=== PATIENT | male | born 1945 | race Caucasian/White ===

== ENCOUNTER 2018-06-19 07:26 | Day surgery (SDC) | payer MEDICARE ==
[~2018-06-19 07:26] MED LIST: Propofol 200 MG/20 ML SDV ONE; fentaNYL 100 MCG/2 ML SDV ONE
[2018-06-19] MEDS ORDERED: Dextrose 5%-Lactated Ringers 1,000 ML IV SCH (08:30)
--- NOTE | 2018-06-22 21:20 | OR ---
DATE OF PROCEDURE: 06/19/2018 PREOPERATIVE DIAGNOSIS: Frequent loose bowel movements with history of ischemic colitis. POSTOPERATIVE DIAGNOSES: 1. History of frequent loose bowel movements associated with possible right-sided colitis and/or bile irritation. 2. Healed area of ischemic colitis. OPERATIVE PROCEDURES: Flexible colonoscopy with; 1. Biopsies of cecum and ascending colon. 2. Collection of stool for culture and sensitivity. ANESTHESIA: IV sedation. INDICATION FOR PROCEDURE: This 72-year-old is presenting with frequent loose bowel movements. He did have a history of ischemic colitis, treated conservatively in 2009. He states that he thinks that he is having the frequent loose bowel movements since having a cholecystectomy, which is a possibility due to somewhat more persistent flow of bile into the small bowel and right colon following the cholecystectomy. DETAILS OF PROCEDURE: The patient was taken to the operating room and placed in a left lateral decubitus position. IV sedation was administered, after which the initial digital rectal exam was performed and was unremarkable. Colonoscope was then passed into the rectum with retroflexion revealing uncomplicated hemorrhoidal columns. The scope was then eventually passed to the level of the cecum. The prep was fairly good. There were no significant abnormalities in the rectum, sigmoid, or descending colon, and the area of splenic flexure where the patient had previous ischemic colitis was now entirely well healed with no stricturing or mucosal abnormalities. As one passed through the transverse colon and into the ascending colon, it became evident that there was quite a bit of bile present. This was associated with some mild redness of the cecum and ascending colon consistent with possible colitis. This may be simply related to irritation by the amount of bile present as well. Biopsies were obtained from the cecum and ascending colon and sent for histologic evaluation. Stool was also sent in this case for stool cultures to make sure we are not dealing with some occult Clostridium difficile or other infectious issue. Minimal bleeding from the biopsy sites was seen, the procedure then concluded, and the above findings reconfirmed. The plan will be to have the patient follow up with Dr. Jacob or the Internal Medicine staff in [facility] in about 2 weeks. If no specific diagnosis, such as microscopic colitis, is present, one might consider something to slow down the bowels. Bowel-binding agent, such as Questran would be useful, but poor compliance is usually associated with that medication, and he might be able to use something like Imodium intermittently to control the bowel movements. At any rate, he will be following with Internal Medicine in about 2 weeks. Devyn Lind MD /[id number]
== END 2018-06-19 11:20 | disposition home or self-care (01) ==
LOC: JP.SDS 07:26
PROVIDERS: ATTEND Surgery
DX: K52.9 Noninfective gastroenteritis and colitis, unspecified (principal); K64.9 Unspecified hemorrhoids; Z87.19 Personal history of other diseases of the digestive system; F17.200 Nicotine dependence, unspecified, uncomplicated; Z88.5 Allergy status to narcotic agent; Z88.6 Allergy status to analgesic agent; Z88.8 Allergy status to other drugs, medicaments and biological substances
CPT/HCPCS: 45378; 87046; 87177; 87209; 87493; 87899; 89055; J2704; J3010; J7042

== ENCOUNTER 2019-08-22 18:11 | Emergency (ER) | payer MEDICARE ==
--- NOTE | 2019-08-22 18:54 | EDM.PDOC ---
ED HPI GENERAL MEDICAL PROBLEM - General Chief Complaint: General Stated Complaint: FELL MEDICAL VIA [facility] Time Seen by Provider: 08/22/19 18:24 Source of Information: Reports: Patient, EMS, Family History Limitations: Reports: No Limitations - History of Present Illness INITIAL COMMENTS - FREE TEXT/NARRATIVE: 74-year-old male brought in by ambulance with right posterior chest discomfort after falling at home. He has peripheral neuropathy and stumbled falling back hitting his right flank area on a vanity. He is concerned he may have fractured a rib. He also has had previous back surgeries and is concerned about the metal in his back. He has a very small abrasion over the right flank, but no large area of erythema, ecchymosis or bruising. No asymmetry. He has minimal discomfort with breathing. He actually feels fairly comfortable when lying still. No other injury. Onset: Sudden Duration: Hour(s): (Fell 1 hour ago) Location: Reports: Chest (Right flank area), Back Improves with: Reports: Other (Lying still) Worsens with: Reports: Movement Associated Symptoms: Reports: No Other Symptoms Middle Back Pain Score (Numeric/FACES): 2 - Related Data Allergies Allergy/AdvReac Type Severity Reaction Status Date / Time hydromorphone [From Dilaudid] Allergy Anaphylactic Verified 06/19/18 07:43 Shock ibuprofen Allergy Abdominal Verified 06/19/18 07:43 Pain vancomycin Allergy Rash Verified 06/19/18 07:43 Home Meds: Home Meds Aspirin [Halfprin] 81 mg PO DAILY 06/15/18 [History] Chlorthalidone 25 mg PO DAILY 06/15/18 [History] Cholecalciferol (Vitamin D3) [Vitamin D3] 1,000 unit PO DAILY 06/15/18 [History] Cyanocobalamin (Vitamin B-12) [Vitamin B-12] 1,000 mcg SL DAILY 06/15/18 [ History] Gabapentin [Neurontin] 300 mg PO DAILY 06/15/18 [History] traMADol HCl [Ultram] 50 mg PO QID 06/15/18 [History] Past Medical History HEENT History: Reports: Impaired Vision Other HEENT History: reading glasses Cardiovascular History: Reports: Hypertension Gastrointestinal History: Reports: Chronic Constipation, Chronic Diarrhea Genitourinary History: Reports: Prostate Disorder, Other (See Below) Other Genitourinary History: "PSA going up" - Infectious Disease History Infectious Disease History: Reports: Chicken Pox, Measles, Mumps - Past Surgical History GI Surgical History: Reports: Cholecystectomy, Colonoscopy, Hernia, Inguinal Neurological Surgical History: Reports: C-Spine, Lumbar Spine Musculoskeletal Surgical History: Reports: Other (See Below) Other Musculoskeletal Surgeries/Procedures:: back surgery and neck surgery Social & Family History - Family History Family Medical History: Noncontributory - Tobacco Use Smoking Status *Q: Current Every Day Smoker Years of Tobacco use: 60 Packs/Tins Daily: 1 - Caffeine Use Caffeine Use: Reports: Coffee - Recreational Drug Use Recreational Drug Use: No ED ROS GENERAL - Review of Systems Review Of Systems: See Below Constitutional: Denies: Fever, Chills Respiratory: Denies: Shortness of Breath, Pleuritic Chest Pain Cardiovascular: Reports: Chest Pain (Right posterior chest and flank) GI/Abdominal: Denies: Abdominal Pain, Nausea, Vomiting : Reports: No Symptoms Skin: Reports: Bruising (Small abrasion at the point of impact on the right flank) Neurological: Reports: Other (Significant chronic peripheral neuropathy) Psychiatric: Reports: No Symptoms ED EXAM, GENERAL - Physical Exam Exam: See Below Exam Limited By: No Limitations General Appearance: Alert, No Apparent Distress Eye Exam: Bilateral Eye: EOMI Head: Atraumatic Neck: Non-Tender Respiratory/Chest: No Respiratory Distress, Lungs Clear GI/Abdominal: Soft, Non-Tender Back Exam: Other (Patient has a small abrasion in the right mid back with tenderness to palpation of the ribs on the right side under the scapula. No crepitus.) Course - Vital Signs Last Recorded V/S: Last Vital Signs Temp 97.9 F 08/22/19 18:34 Pulse 72 08/22/19 18:34 Resp 18 08/22/19 18:34 BP 131/71 08/22/19 18:34 Pulse Ox 92 L 08/22/19 18:34 - Orders/Labs/Meds Meds: Medications Discontinued Medications Generic Name Dose Route Start Last Admin Trade Name Freq PRN Reason Stop Dose Admin Ketorolac Tromethamine 60 mg 08/22/19 19:46 08/22/19 19:51 Toradol IM 08/22/19 19:47 60 mg ONETIME ONE Administration Tramadol HCl 100 mg 08/22/19 19:46 08/22/19 19:52 Ultram PO 08/22/19 19:47 100 mg ONETIME ONE Administration - Re-Assessments/Exams Free Text/Narrative Re-Assessment/Exam: 08/22/19 18:[address] of the chest without contrast was obtained. 08/22/19 19:47 While waiting for the report from CT of the chest, the patient became fairly uncomfortable and was given 60 mg of IM Toradol and 100 mg of by mouth tramadol. The CT scan shows obvious rib fractures on the right side, at least 3 but no significant pulmonary contusion. We are still waiting for formal report. 08/22/19 20:04 CT report confirmed 5 rib fractures, the ninth being slightly displaced and also 1 nondisplaced transverse process fracture. Patient is fairly uncomfortable and I offered hospitalization but he wants to try to go home. He is stable, O2 saturations are normal and I have no reason to insist to be hospitalized. He will return if unable to get by at home over the next 1-2 days. A recheck early next week with his primary provider will also be recommended. Departure - Departure Time of Disposition: 20:58 Disposition: Home, Self-Care 01 Clinical Impression: Multiple rib fractures Qualifiers: Encounter type: initial encounter Fracture type: closed Laterality: right Qualified Code(s): S22.41XA - Multiple fractures of ribs, right side, initial encounter for closed fracture Fracture of transverse process of thoracic vertebra Qualifiers: Encounter type: initial encounter Fracture type: closed Qualified Code(s): S22.009A - Unspecified fracture of unspecified thoracic vertebra, initial encounter for closed fracture - Discharge Information Instructions: Rib Fracture, [id number] Referrals: Preston Jacob MD [Primary Care Provider] - Forms: ED Department Discharge Care Plan Goals: Use pain medication on a continuous basis, increase activity as tolerated and return anytime if you become short of breath or pain is uncontrolled. Consider rechecking with Dr. Jacob or at the walk-in clinic next week to monitor your progress. Return sooner if worsening or concerns. Wrapping the chest with keren wraps intermittently while awake may be beneficial.
[2019-08-22] MEDS: Ketorolac 60 MG/2 ML SDV IM ONE (19:51)
[2019-08-22] MEDS: traMADol 50 MG Tab PO ONE (19:52)
--- NOTE | 2019-08-22 19:54 | CRLCT ---
INDICATION: Fall, trauma. TECHNIQUE: Nonenhanced CT scan of the chest with multiplanar reconstructions. FINDINGS: There are multiple posterior right rib fractures, without evidence of pneumothorax. Fractures involve posterior right rib #11, lateral right rib ribs 7, 8, 9, and 10, with a fracture at rib 9 being mildly displaced. A small amount of pleural thickening and/or fluid. Minor atelectasis at the posterior right lower lobe. Minimal pulmonary contusion is a possibility. Mild pulmonary emphysematous change.56 Nondisplaced fracture of the right transverse process of T10. No other acute thoracic spine injury. The heart and mediastinum are within normal limits. Homogeneous thyroid. Aortic stent graft, incompletely visualized. Probable left renal cyst posteriorly, also incompletely seen. Cholecystectomy clips. Otherwise, visualized portions of solid abdominal organs appear within normal limits. Anterior metallic fusion plate at the lower cervical spine. IMPRESSION: 1. Multiple right rib fractures, fracture at the lateral aspect of right rib 9 is mildly displaced. No evidence of pneumothorax. Minimal right posterior pulmonary contusion is suggested. Mild pleural thickening. 2. Nondisplaced fracture of right transverse process of T10 with no other acute thoracic injury. 3. Mild pulmonary emphysematous change. Please note that all CT scans at this facility use dose modulation, iterative reconstruction, and/or weight-based dosing when appropriate to reduce radiation dose to as low as reasonably achievable. Dictated by Ming Duran MD @ Aug 22 2019 7:40PM Signed by Dr. Ming Duran @ Aug 22 2019 7:53PM
== END 2019-08-22 20:57 | disposition home or self-care (01) ==
LOC: JP.ED 18:11
DX: S22.41XA Multiple fractures of ribs, right side, initial encounter for closed fracture (principal); S22.071A Stable burst fracture of T9-T10 vertebra, initial encounter for closed fracture; I10 Essential (primary) hypertension; F17.210 Nicotine dependence, cigarettes, uncomplicated; Z88.6 Allergy status to analgesic agent; Z88.1 Allergy status to other antibiotic agents; Z79.82 Long term (current) use of aspirin; Z79.899 Other long term (current) drug therapy; W18.30XA Fall on same level, unspecified, initial encounter; W22.8XXA Striking against or struck by other objects, initial encounter; Y92.002 Bathroom of unspecified non-institutional (private) residence as the place of occurrence of the external cause
CPT/HCPCS: 71250; 96372; 99284; 99285; A9270; J1885

== ENCOUNTER 2021-07-31 11:41 | Observation (INO) | payer MEDICARE ==
--- NOTE | 2021-07-31 12:14 | EDM.PDOC ---
ED HPI GENERAL MEDICAL PROBLEM - General Chief Complaint: General Stated Complaint: MEDICAL VIA AMBULANCE Time Seen by Provider: 07/31/21 11:55 Source of Information: Reports: Patient, EMS, Old Records History Limitations: Reports: No Limitations - History of Present Illness INITIAL COMMENTS - FREE TEXT/NARRATIVE: 75 yo male got blurred vision and bilateral shoulder pain today whenever he would try to stand up. Lying improved his sx's. At one point he got pale and diaphoretic so EMS was called and transported. He is not aware of any recent illnesses or vomiting/diarrhea. No fever. No chest pain. He did take this morning's meds. EMS noted orthostatic vital signs. 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 He is a cigarette smoker. Was prescribed on hospital discharge oxygen to use around the clock, but he only uses it at night and at 3 liters/min/NC. Onset: Today, Sudden Onset Date: 07/31/21 Duration: Hour(s):, Waxing/Waning Location: Reports: Generalized Quality: Reports: Ache (both shoulders now gone) Severity: Moderate Improves with: Reports: Other (lying down) Worsens with: Reports: Other (standing) Context: Reports: Other (see HPI) Associated Symptoms: Reports: Diaphoresis, Syncope (near syncope). Denies: Chest Pain, Fever/Chills Treatments [employer] RESURFACER: Reports: Other (see below) (IV access only per EMS) - Related Data Allergies Allergy/AdvReac Type Severity Reaction Status Date / Time hydromorphone [From Dilaudid] Allergy Severe Anaphylactic Verified 03/27/20 07:41 Shock vancomycin Allergy Rash Verified 06/19/18 07:43 ibuprofen AdvReac Abdominal Verified 03/27/20 07:41 Pain Home Meds: Home Meds Aspirin [Halfprin] 81 mg PO DAILY 06/15/18 [History] Chlorthalidone 25 mg PO DAILY 06/15/18 [History] Cholecalciferol (Vitamin D3) [Vitamin D3] 1,000 unit PO DAILY 06/15/18 [History] Cyanocobalamin (Vitamin B-12) [Vitamin B-12] 1,000 mcg SL DAILY 06/15/18 [History] Gabapentin [Neurontin] 300 mg PO DAILY 06/15/18 [History] traMADol HCl [Ultram] 50 mg PO QID 06/15/18 [History] Rivaroxaban [Xarelto] 20 mg PO DAILY 07/31/21 [History] Past Medical History HEENT History: Reports: Impaired Vision Other HEENT History: reading glasses Cardiovascular History: Reports: Hypertension Gastrointestinal History: Reports: Chronic Constipation, Chronic Diarrhea Genitourinary History: Reports: Prostate Disorder, Other (See Below) Other Genitourinary History: "PSA going up" - Infectious Disease History Infectious Disease History: Reports: Chicken Pox, Measles, Mumps - Past Surgical History GI Surgical History: Reports: Cholecystectomy, Colonoscopy, Hernia, Inguinal Neurological Surgical History: Reports: C-Spine, Lumbar Spine Musculoskeletal Surgical History: Reports: Other (See Below) Other Musculoskeletal Surgeries/Procedures:: back surgery and neck surgery Social & Family History - Family History Family Medical History: No Pertinent Family History - Caffeine Use Caffeine Use: Reports: Coffee ED ROS GENERAL - Review of Systems Review Of Systems: See Below Constitutional: Reports: Malaise, Decreased Appetite HEENT: Reports: Vision Change (when standing), Other (dry mouth) Respiratory: Reports: No Symptoms Cardiovascular: Reports: Lightheadedness GI/Abdominal: Reports: No Symptoms : Reports: No Symptoms Musculoskeletal: Reports: No Symptoms Skin: Reports: No Symptoms Neurological: Reports: No Symptoms Psychiatric: Reports: No Symptoms ED EXAM, GENERAL - Physical Exam Exam: See Below Exam Limited By: No Limitations General Appearance: Alert, WD/WN, No Apparent Distress Eye Exam: Right Eye: Proptosis, Bilateral Eye: Normal Inspection Ears: Normal External Exam, Normal Canal, Hearing Grossly Normal Ear Exam: Bilateral Ear: Auricle Normal, Canal Normal Nose: Normal Inspection, No Blood Throat/Mouth: Normal Inspection, Normal Lips, Normal Oropharynx, Normal Voice, No Airway Compromise Head: Atraumatic, Normocephalic Neck: Normal Inspection Respiratory/Chest: No Respiratory Distress, Lungs Clear, Normal Breath Sounds, No Accessory Muscle Use Cardiovascular: Regular Rate, Rhythm, No Edema GI/Abdominal: Normal Bowel Sounds, Soft, Non-Tender, No Distention. No: Distended Extremities: Normal Inspection, Normal Range of Motion, Non-Tender, No Pedal Edema Neurological: Alert, Oriented, CN II-XII Intact, Normal Cognition, No Motor/Sensory Deficits Psychiatric: Normal Affect, Normal Mood Skin Exam: Warm, Dry, Intact, Normal Color, No Rash Course - Vital Signs Text/Narrative:: Dr. Mitchell called @ 1725h Last Recorded V/S: Last Vital Signs Temp 36.4 C 07/31/21 12:10 Pulse 80 07/31/21 17:07 Resp 25 H 07/31/21 17:07 BP 91/53 L 07/31/21 17:07 Pulse Ox 94 L 07/31/21 17:07 Orthostatic Blood Pressure [ 80/46 Standing] Orthostatic Blood Pressure [ 104/59 Sitting] Orthostatic Blood Pressure [ 115/66 Supine] - Orders/Labs/Meds Orders: Active Orders 24 hr Category Date Time Status Orthostatic Vital Signs [RC] ASDIRECTED Care 07/31/21 13:42 Active Lactated Ringers [Ringers, Lactated] 1,000 ml Med 07/31/21 12:15 Active IV BOLUS NS + KCl 20mEq/L [Normal Saline with 20 mEq KCl] 1,000 Med 07/31/21 14:15 Active ml IV ASDIRECTED Nicotine [Habitrol] Med 07/31/21 17:24 Once 21 mg TRDERM ONETIME ONE Medication Orders Lactated Ringer's (Ringers, Lactated) 1,000 mls @ 1,000 mls/hr IV BOLUS FAUSTINA Last Admin: 07/31/21 12:39 Dose: 1,000 mls/hr Documented by: CECILY Potassium Chloride/Sodium Chloride (Normal Saline With 20 Meq Kcl) 1,000 mls @ 1,000 mls/hr IV ASDIRECTED FAUSTINA Last Admin: 07/31/21 14:09 Dose: 1,000 mls/hr Documented by: CECILY Labs: Laboratory Tests 07/31/21 07/31/21 07/31/21 Range/Units 12:19 12:19 12:19 WBC 11.6 H (4.5-11.0) K/uL RBC 4.75 (4.30-5.90) M/uL Hgb 13.9 (12.0-15.0) g/dL Hct 41.7 (40.0-54.0) % MCV 88 (80-98) fL MCH 29 (27-31) pg MCHC 33 (32-36) % Plt Count 205 (150-400) K/uL Sodium 137 L (140-148) mmol/L Potassium 3.2 L (3.6-5.2) mmol/L Chloride 100 (100-108) mmol/L Carbon Dioxide 30 (21-32) mmol/L Anion Gap 10.2 (5.0-14.0) mmol/L BUN 24 H (7-18) mg/dL Creatinine 1.0 (0.8-1.3) mg/dL Est Cr Clr Drug Dosing 65.89 mL/min Estimated GFR (MDRD) > 60 (>60) Glucose 96 (74-106) mg/dL Calcium 8.6 (8.5-10.1) mg/dL Magnesium 2.1 (1.8-2.4) mg/dL Troponin I < 0.017 (0.000-0.056) ng/mL Urine Color (YELLOW) Urine Appearance (CLEAR) Urine pH (5.0-8.0) Ur Specific [place] (1.008-1.030) Urine Protein (NEGATIVE) mg/dL Urine Glucose (UA) (NEGATIVE) mg/dL Urine Ketones (NEGATIVE) mg/dL Urine Occult Blood (NEGATIVE) Urine Nitrite (NEGATIVE) Urine Bilirubin (NEGATIVE) Urine Urobilinogen (0.2-1.0) EU/dL Ur Leukocyte Esterase (NEGATIVE) Urine RBC (0-5) Urine WBC (0-5) Ur Epithelial Cells Amorphous Sediment Urine Bacteria Urine Mucus 07/31/21 07/31/21 Range/Units 14:24 14:44 WBC (4.5-11.0) K/uL RBC (4.30-5.90) M/uL Hgb (12.0-15.0) g/dL Hct (40.0-54.0) % MCV (80-98) fL MCH (27-31) pg MCHC (32-36) % Plt Count (150-400) K/uL Sodium (140-148) mmol/L Potassium (3.6-5.2) mmol/L Chloride (100-108) mmol/L Carbon Dioxide (21-32) mmol/L Anion Gap (5.0-14.0) mmol/L BUN (7-18) mg/dL Creatinine (0.8-1.3) mg/dL Est Cr Clr Drug Dosing mL/min Estimated GFR (MDRD) (>60) Glucose (74-106) mg/dL Calcium (8.5-10.1) mg/dL Magnesium (1.8-2.4) mg/dL Troponin I < 0.017 (0.000-0.056) ng/mL Urine Color Yellow (YELLOW) Urine Appearance Clear (CLEAR) Urine pH 7.0 (5.0-8.0) Ur Specific [place] 1.015 (1.008-1.030) Urine Protein Negative (NEGATIVE) mg/dL Urine Glucose (UA) Negative (NEGATIVE) mg/dL Urine Ketones Negative (NEGATIVE) mg/dL Urine Occult Blood Trace-intact H (NEGATIVE) Urine Nitrite Negative (NEGATIVE) Urine Bilirubin Negative (NEGATIVE) Urine Urobilinogen 0.2 (0.2-1.0) EU/dL Ur Leukocyte Esterase Negative (NEGATIVE) Urine RBC 0-5 (0-5) Urine WBC 0-5 (0-5) Ur Epithelial Cells Not seen Amorphous Sediment Rare Urine Bacteria Rare Urine Mucus Rare Meds: Medications Generic Name Dose Route Start Last Admin Trade Name Freq PRN Reason Stop Dose Admin Lactated Ringer's 1,000 mls @ 1,000 mls/hr 07/31/21 12:15 07/31/21 12:39 Ringers, Lactated IV 1,000 mls/hr BOLUS FAUSTINA Administration Potassium Chloride/Sodium Chloride 1,000 mls @ 1,000 mls/hr 07/31/21 14:15 07/31/21 14:09 Normal Saline With 20 Meq Kcl IV 1,000 mls/hr ASDIRECTED FAUSTINA Administration Discontinued Medications Generic Name Dose Route Start Last Admin Trade Name Freq PRN Reason Stop Dose Admin Lactated Ringer's 1,000 mls @ 1,000 mls/hr 07/31/21 15:33 07/31/21 16:36 Ringers, Lactated IV 07/31/21 16:32 1,000 mls/hr BOLUS ONE Administration Potassium Chloride 40 meq 07/31/21 13:01 07/31/21 13:12 Potassium Chloride 20 Meq Tab.Er PO 07/31/21 13:02 40 meq ONETIME ONE Administration - Radiology Interpretation Free Text/Narrative:: CXR- - Re-Assessments/Exams Free Text/Narrative Re-Assessment/Exam: 07/31/21 14:55 Urine specimen obtained after a liter of IV fluids. Remains orthostatic after 1.5 liters of IV fluids. Departure - Departure Time of Disposition: 17:40 Disposition: Admitted As Inpatient 64 Condition: Fair Clinical Impression: Orthostasis, Hypokalemia - Discharge Information *PRESCRIPTION DRUG MONITORING PROGRAM REVIEWED*: Not Applicable *COPY OF PRESCRIPTION DRUG MONITORING REPORT IN PATIENT RAYMUNDO: Not Applicable Referrals: Preston Jacob MD [Primary Care Provider] - Forms: ED Department Discharge Sepsis Event Note (ED) - Focused Exam Vital Signs: Vital Signs Temp Pulse Resp BP Pulse Ox 07/31/21 17:07 80 25 H 91/53 L 94 L 07/31/21 16:32 74 16 95/56 L 94 L 07/31/21 15:29 65 12 127/65 94 L 07/31/21 14:58 61 123/68 07/31/21 14:41 62 21 H 119/68 07/31/21 12:46 61 13 120/63 91 L 07/31/21 12:10 36.4 C 63 21 H 103/57 L 92 L 07/31/21 11:48 36.1 C 64 13 103/57 L 91 L - My Orders Last 24 Hours: My Active Orders 07/31/21 12:15 Lactated Ringers [Ringers, Lactated] 1,000 ml IV BOLUS 07/31/21 13:42 Orthostatic Vital Signs [RC] ASDIRECTED 07/31/21 14:15 NS + KCl 20mEq/L [Normal Saline with 20 mEq KCl] 1,000 ml IV ASDIRECTED 07/31/21 17:24 Nicotine [Habitrol] 21 mg TRDERM ONETIME ONE - Assessment/Plan Last 24 Hours: My Active Orders 07/31/21 12:15 Lactated Ringers [Ringers, Lactated] 1,000 ml IV BOLUS 07/31/21 13:42 Orthostatic Vital Signs [RC] ASDIRECTED 07/31/21 14:15 NS + KCl 20mEq/L [Normal Saline with 20 mEq KCl] 1,000 ml IV ASDIRECTED 07/31/21 17:24 Nicotine [Habitrol] 21 mg TRDERM ONETIME ONE
[2021-07-31] MEDS ORDERED: Lactated Ringers 1,000 ML IV SCH (12:15)
[2021-07-31] MEDS ORDERED: Potassium Chloride 20 MEQ Tab.ER PO ONE (13:01)
--- NOTE | 2021-07-31 13:57 | CR ---
CHEST: Portable 07/31/2021 at 1:38 PM CLINICAL HISTORY:Syncope COMPARISON:CT March 2021 FINDINGS: The heart size, pulmonary vascularity and hilar structures are normal. No infiltrate effusion or pneumothorax is seen. There are atherosclerotic changes in the aorta. There is some mild prominence of the lung markings in the infrahilar regions bilaterally. This is similar to the CT. Possible rib fractures on the right. IMPRESSION: No acute cardiopulmonary process. Increased lung markings bilaterally are felt to be chronic
[2021-07-31] MEDS ORDERED: NS + KCl 20mEq/L 1,000 ML IV SCH (14:15)
[2021-07-31] MEDS ORDERED: Lactated Ringers 1,000 ML IV ONE (15:33)
[2021-07-31] MEDS ORDERED: Nicotine 21 MG/24 Hr Patch TRDERM ONE (17:24)
--- NOTE | 2021-07-31 18:01 | PCM.HP.2 ---
H&P History of Present Illness - General Date of Service: 07/31/21 Admit Problem/Dx: Admission Diagnosis/Problem Admission Diagnosis/Problem Orthostatic hypotension Source of Information: Patient, Family, Provider History Limitations: Reports: No Limitations - History of Present Illness Initial Comments - Free Text/Narative: CC: I just couldn't take it anymore HPI: Vernon presents to the emergency room today after an episode of shoulder pain, dizziness and weakness. He reports that he woke up feeling okay this morning. Went to the bathroom and was getting ready for the day. While he was trying to comb his hair he developed moderate bilateral achy shoulder pain as well as some generalized weakness and dizziness. The pain did not radiate. When the pain persisted he abandoned his morning routine and went back to bed. He was weak on the way to get there. He laid in bed for a little while and felt well so he got up to go to the kitchen. While in the kitchen he became weak, dizzy and diaphoretic. He did not have shoulder pain at that time. 911 was summoned and he was brought to the emergency room for further evaluation. He has not had any chest pain. He does not feel any more short of breath than usual. No reports of headaches. He did have an episode a couple of nights ago where his vision was blurry and color seem to be changing. His vision is normal at this time. He has a history of peripheral edema but this has been absent. No change in oral intake of either food or fluids. No change in bowel or bladder habits. Peripheral neuropathy is chronic. He did not notice any weakness of one specific side of his body. He did not have any difficulty with speech. Work-up in the emergency room revealed mild leukocytosis and mild hypokalemia. Orthostatic vital signs were positive and continued to be positive despite receiving 3 L of IV fluid. Symptomatically he is feeling better. 2 troponin levels were unremarkable. Chest x-ray did not suggest acute pathology. There is no evidence for infection. With the positive orthostatic vital signs he will be admitted for observation overnight. - Related Data Allergies/Adverse Reactions: Allergies Allergy/AdvReac Type Severity Reaction Status Date / Time hydromorphone [From Dilaudid] Allergy Severe Anaphylactic Verified 03/27/20 07:41 Shock vancomycin Allergy Rash Verified 06/19/18 07:43 ibuprofen AdvReac Abdominal Verified 03/27/20 07:41 Pain Home Medications: Home Meds Aspirin [Halfprin] 81 mg PO DAILY 06/15/18 [History] Chlorthalidone 25 mg PO DAILY 06/15/18 [History] Cholecalciferol (Vitamin D3) [Vitamin D3] 1,000 unit PO DAILY 06/15/18 [History] Cyanocobalamin (Vitamin B-12) [Vitamin B-12] 1,000 mcg SL DAILY 06/15/18 [History] Gabapentin [Neurontin] 300 mg PO DAILY 06/15/18 [History] traMADol HCl [Ultram] 50 mg PO QID 06/15/18 [History] Rivaroxaban [Xarelto] 20 mg PO DAILY 07/31/21 [History] Past Medical History HEENT History: Reports: Impaired Vision Other HEENT History: reading glasses Cardiovascular History: Reports: Hypertension Respiratory History: Reports: PE Gastrointestinal History: Reports: Chronic Constipation, Chronic Diarrhea Genitourinary History: Reports: Prostate Disorder, Other (See Below) Other Genitourinary History: "PSA going up" Oncologic (Cancer) History: Reports: Prostate - Infectious Disease History Infectious Disease History: Reports: Chicken Pox, Measles, Mumps - Past Surgical History GI Surgical History: Reports: Cholecystectomy, Colonoscopy, Hernia, Inguinal Neurological Surgical History: Reports: C-Spine, Lumbar Spine Musculoskeletal Surgical History: Reports: Other (See Below) Other Musculoskeletal Surgeries/Procedures:: back surgery and neck surgery Social & Family History - Family History Family Medical History: No Pertinent Family History - Tobacco Use Tobacco Use Status *Q: Current Every Day Tobacco User Years of Tobacco use: 60 Packs/Tins Daily: 0.5 - Caffeine Use Caffeine Use: Reports: Coffee - Alcohol Use Days Per Week of Alcohol Use: 7 Number of Drinks Per Day: 1 Total Drinks Per Week: 7 - Recreational Drug Use Recreational Drug Use: No H&P Review of Systems - Review of Systems: Review Of Systems: See Below Free Text/Narrative: A complete 12 point review of systems was obtained. Pertinent positives and negatives are noted in the history of present illness. All other systems were reviewed and were negative except as noted. Exam - Exam Exam: See Below - Vital Signs Vital Signs: Last Vital Signs Temp 36.4 C 07/31/21 12:10 Pulse 80 07/31/21 17:07 Resp 25 H 07/31/21 17:07 BP 91/53 L 07/31/21 17:07 Pulse Ox 94 L 07/31/21 17:07 Orthostatic Blood Pressure [ 86/21 Standing] Orthostatic Blood Pressure [ 104/59 Sitting] Orthostatic Blood Pressure [ 115/66 Supine] Weight: 81.647 kg - Exam Quality Assessment: Supplemental Oxygen General: Alert, Oriented, Cooperative. No: Mild Distress HEENT: Conjunctiva Clear. No: Mucosa Moist & [place] (dry), Scleral Icterus Neck: Supple, Trachea Midline. No: JVD Lungs: Clear to Auscultation, Normal Respiratory Effort. No: Wheezing Cardiovascular: Regular Rate, Regular Rhythm, Other (Heart sounds somewhat distant). No: Systolic Murmur GI/Abdominal Exam: Normal Bowel Sounds, Soft, Non-Tender, No Distention Back Exam: Normal Inspection, Other (Sebaceous cyst right upper back) Extremities: No Pedal Edema, Other (Left great toe is slightly cool and slightly violaceous). No: Increased Warmth Peripheral Pulses: 2+: Dorsalis Pedis (L), Dorsalis Pedis (R) Skin: Warm, Dry, Other (Several seborrheic keratoses on the back) Neuro Extensive - Mental Status: Alert, Oriented x3, Nl Response to Commands Neuro Extensive - Motor, Sensory, Reflexes: No: Dysarthria, Abnormal Motor, T remor Psychiatric: Alert, Normal Affect - Patient Data Lab Results Last 24 hrs: Laboratory Results - last 24 hr 07/31/21 07/31/21 07/31/21 Range/Units 12:19 12:19 12:19 WBC 11.6 H (4.5-11.0) K/uL RBC 4.75 (4.30-5.90) M/uL Hgb 13.9 (12.0-15.0) g/dL Hct 41.7 (40.0-54.0) % MCV 88 (80-98) fL MCH 29 (27-31) pg MCHC 33 (32-36) % Plt Count 205 (150-400) K/uL Sodium 137 L (140-148) mmol/L Potassium 3.2 L (3.6-5.2) mmol/L Chloride 100 (100-108) mmol/L Carbon Dioxide 30 (21-32) mmol/L Anion Gap 10.2 (5.0-14.0) mmol/L BUN 24 H (7-18) mg/dL Creatinine 1.0 (0.8-1.3) mg/dL Est Cr Clr Drug Dosing 65.89 mL/min Estimated GFR (MDRD) > 60 (>60) Glucose 96 (74-106) mg/dL Calcium 8.6 (8.5-10.1) mg/dL Magnesium 2.1 (1.8-2.4) mg/dL Troponin I < 0.017 (0.000-0.056) ng/mL Urine Color (YELLOW) Urine Appearance (CLEAR) Urine pH (5.0-8.0) Ur Specific [place] (1.008-1.030) Urine Protein (NEGATIVE) mg/dL Urine Glucose (UA) (NEGATIVE) mg/dL Urine Ketones (NEGATIVE) mg/dL Urine Occult Blood (NEGATIVE) Urine Nitrite (NEGATIVE) Urine Bilirubin (NEGATIVE) Urine Urobilinogen (0.2-1.0) EU/dL Ur Leukocyte Esterase (NEGATIVE) Urine RBC (0-5) Urine WBC (0-5) Ur Epithelial Cells Amorphous Sediment Urine Bacteria Urine Mucus 07/31/21 07/31/21 Range/Units 14:24 14:44 WBC (4.5-11.0) K/uL RBC (4.30-5.90) M/uL Hgb (12.0-15.0) g/dL Hct (40.0-54.0) % MCV (80-98) fL MCH (27-31) pg MCHC (32-36) % Plt Count (150-400) K/uL Sodium (140-148) mmol/L Potassium (3.6-5.2) mmol/L Chloride (100-108) mmol/L Carbon Dioxide (21-32) mmol/L Anion Gap (5.0-14.0) mmol/L BUN (7-18) mg/dL Creatinine (0.8-1.3) mg/dL Est Cr Clr Drug Dosing mL/min Estimated GFR (MDRD) (>60) Glucose (74-106) mg/dL Calcium (8.5-10.1) mg/dL Magnesium (1.8-2.4) mg/dL Troponin I < 0.017 (0.000-0.056) ng/mL Urine Color Yellow (YELLOW) Urine Appearance Clear (CLEAR) Urine pH 7.0 (5.0-8.0) Ur Specific [place] 1.015 (1.008-1.030) Urine Protein Negative (NEGATIVE) mg/dL Urine Glucose (UA) Negative (NEGATIVE) mg/dL Urine Ketones Negative (NEGATIVE) mg/dL Urine Occult Blood Trace-intact H (NEGATIVE) Urine Nitrite Negative (NEGATIVE) Urine Bilirubin Negative (NEGATIVE) Urine Urobilinogen 0.2 (0.2-1.0) EU/dL Ur Leukocyte Esterase Negative (NEGATIVE) Urine RBC 0-5 (0-5) Urine WBC 0-5 (0-5) Ur Epithelial Cells Not seen Amorphous Sediment Rare Urine Bacteria Rare Urine Mucus Rare Result Diagrams: 07/31/21 12:19 07/31/21 12:19 Imaging Impressions Last 24 hrs: Chest x-ray-image personally reviewed-heart size is normal. No mass, infiltrate or effusion. Sepsis Event Note - Focused Exam Vital Signs: Vital Signs Temp Pulse Resp BP Pulse Ox 07/31/21 17:07 80 25 H 91/53 L 94 L 07/31/21 16:32 74 16 95/56 L 94 L 07/31/21 15:29 65 12 127/65 94 L 07/31/21 14:58 61 123/68 07/31/21 14:41 62 21 H 119/68 07/31/21 12:46 61 13 120/63 91 L 07/31/21 12:10 36.4 C 63 21 H 103/57 L 92 L 07/31/21 11:48 36.1 C 64 13 103/57 L 91 L *Q Meaningful Use (ADM) - VTE Risk Assess *Q Each Risk Factor Represents 1 Point: Abnormal Pulmonary Function (COPD) Total Score 1 Point Risk Factors: 1 Each Risk Factor Represents 2 Points: None Total Score 2 Point Risk Factors: 0 Each Risk Factor Represents 3 Points: Age 75 Years or Greater Total Score 3 Point Risk Factors: 3 Each Risk Factor Represents 5 Points: None Total Score 5 Point Risk Factors: 0 Venous Thromboembolism Risk Factor Score *Q: 4 - Problem List (1) Hypokalemia SNOMED Code(s): 61073169 ICD Code: E87.6 - HYPOKALEMIA Status: Acute Current Visit: Yes (2) Orthostasis SNOMED Code(s): 30484442 ICD Code: I95.1 - ORTHOSTATIC HYPOTENSION Status: Acute Current Visit: Yes (3) COPD (chronic obstructive pulmonary disease) SNOMED Code(s): 14834508 ICD Code: J44.9 - CHRONIC OBSTRUCTIVE PULMONARY DISEASE, UNSPECIFIED Status: Chronic Current Visit: Yes Qualifiers: COPD type: emphysema Emphysema type: unspecified Qualified Code(s): J43.9 - Emphysema, unspecified (4) Tobacco dependence SNOMED Code(s): 77135484 ICD Code: F17.200 - NICOTINE DEPENDENCE, UNSPECIFIED, UNCOMPLICATED Status: Chronic Current Visit: Yes Problem List Initiated/Reviewed/Updated: Yes Orders Last 24hrs: Active Orders 24 hr Category Date Time Status Patient Status Manage Transfer [TRANSFER] Routine ADT 07/31/21 17:53 Ordered Orthostatic Vital Signs [RC] ASDIRECTED Care 07/31/21 13:42 Active Head wo Cont [CT] Stat Exams 07/31/21 17:52 Ordered Lactated Ringers [Ringers, Lactated] 1,000 ml Med 07/31/21 12:15 Active IV BOLUS NS + KCl 20mEq/L [Normal Saline with 20 mEq KCl] 1,000 Med 07/31/21 14:15 Active ml IV ASDIRECTED Resuscitation Status Routine Resus Stat 07/31/21 17:55 Ordered Medication Orders Lactated Ringer's (Ringers, Lactated) 1,000 mls @ 1,000 mls/hr IV BOLUS FAUSTINA Last Admin: 07/31/21 12:39 Dose: 1,000 mls/hr Documented by: CECILY Potassium Chloride/Sodium Chloride (Normal Saline With 20 Meq Kcl) 1,000 mls @ 1,000 mls/hr IV ASDIRECTED FAUSTINA Last Admin: 07/31/21 14:09 Dose: 1,000 mls/hr Documented by: CECILY Assessment/Plan Comment:: ASSESSMENT AND PLAN - Orthostatic hypotension-suspect medication side effect from his chlorthalidone. Probably has been dealing with chronic dehydration with more acute decompe nsation. Symptomatically feeling better after fluids but blood pressure is still low and orthostatics remain positive. No evidence for infection at this time. Heart rate is normal. Examination benign. -Head CT to rule out intracranial pathology -Hold chlorthalidone -Repeat orthostatics in the morning Hypokalemia-replaced in the emergency room. -Recheck in the morning COPD-no change in symptoms recently. Normally just uses supplemental oxygen at night. He is currently requiring oxygen. -Supplement oxygen as indicated Pulmonary emboli-somewhat recent diagnosis and he has been started on rivaroxaban. No chest pain or reason to suspect treatment failure. -Continue rivaroxaban Tobacco dependence-encourage cessation Maintenance issues - -DVT prophylaxis-rivaroxaban -GI prophylaxis-not indicated -Nutrition-regular -Cottrell catheter-not indicated CODE STATUS -full code Admission justification -this patient will be referred for observation to monitor vital signs and repeat orthostatic vital signs Disposition -I anticipate discharge home after the hospital stay Primary care physician -Dr. Preston Mitchell M.D. - Mortality Measure Prognosis:: Good
[2021-07-31] MEDS ORDERED: Ondansetron 4 MG/2 ML SDV IV PRN (18:32)
[2021-07-31] MEDS ORDERED: Melatonin 3 MG Tab PO PRN (18:32)
[2021-07-31] MEDS ORDERED: Albuterol 0.083% 2.5 MG/3 ML Neb Soln NEB PRN (18:32)
[2021-07-31] MEDS ORDERED: LORazepam 2 MG/ML SDV IVPUSH PRN (18:32)
[2021-07-31] MEDS ORDERED: Acetaminophen 325 MG Tab PO PRN (18:32)
[2021-07-31] MEDS ORDERED: Magnesium Hydroxide 400 MG/5 ML Susp 30 ML Cup PO PRN (18:32)
[2021-07-31] MEDS ORDERED: Ondansetron 4 MG Tab.DIS PO PRN (18:32)
--- NOTE | 2021-07-31 19:11 | CRLCT ---
For Patients: As a result of the Century Cures Act, medical imaging exams and procedure reports are released immediately into your electronic medical record. You may view this report before your referring provider. If you have questions, please contact your health care provider. INDICATION: near syncope, blurry vision COMPARISON: none TECHNIQUE: A CT volumetric acquisition was performed of the brain without IV contrast. Please note that all CT scans at this facility use dose modulation, iterative reconstruction, and/or weight-based dosing when appropriate to reduce radiation dose to as low as reasonably achievable. FINDINGS: No intracranial hemorrhage, mass or mass effect. Minimal generalized cortical atrophy. Mild chronic white matter changes. Normal pham-white differentiation. No extra-axial fluid collection. No fracture. Visualized sinuses clear. IMPRESSION: Mild generalized cortical atrophy and mild chronic white matter changes. No hemorrhage, mass or hydrocephalus. Please note that all CT scans at this facility use dose modulation, iterative reconstruction, and/or weight-based dosing when appropriate to reduce radiation dose to as low as reasonably achievable. Dictated by Leland Camejo MD @ 07/31/2021 7:09:27 PM (Electronically Signed)
[2021-07-31] MEDS ORDERED: Gabapentin 300 MG Cap PO SCH (20:30)
[2021-07-31] MEDS: GABAPENTIN 600 MG PO SCH (21:03)
[2021-07-31] MEDS: TRAMADOL 50 MG PO SCH (21:03)
[2021-08-01] MEDS: TRAMADOL 50 MG PO SCH (00:09)
[2021-08-01] MEDS: GABAPENTIN 600 MG PO SCH ×3 (00:10→15:42)
[2021-08-01] MEDS ORDERED: XARELTO 20 MG PO SCH (08:00)
[2021-08-01] MEDS ORDERED: Potassium Chloride 20 MEQ Tab.ER PO ONE (08:45)
[2021-08-01] MEDS: traMADol 50 MG Tab PO SCH ×2 (10:30→15:41)
[2021-08-01] MEDS ORDERED: Sodium Chloride 0.9% 1,000 ML IV ONE (11:30)
--- NOTE | 2021-08-01 15:15 | PCM.DCSUM1 ---
Discharge Summary - Hospital Course Brief History: 75-year-old male with history of chronic lower extremity edema, COPD with nocturnal oxygen use and tobacco dependence who presented with weakness, dizziness and diaphoresis. He was admitted for observation and management of orthostatic hypotension as well as mild hypokalemia. Diagnosis: Stroke: No - Discharge Data Discharge Date: 08/01/21 Discharge Disposition: Home, Self-Care 01 Condition: Good - Referral to Home Health Primary Care Physician: Preston Jacob MD - Discharge Diagnosis/Problem(s) (1) Orthostasis SNOMED Code(s): 76702061 ICD Code: I95.1 - ORTHOSTATIC HYPOTENSION Status: Acute Current Visit: Yes (2) Hypokalemia SNOMED Code(s): 22393649 ICD Code: E87.6 - HYPOKALEMIA Status: Acute Current Visit: Yes (3) COPD (chronic obstructive pulmonary disease) SNOMED Code(s): 70895477 ICD Code: J44.9 - CHRONIC OBSTRUCTIVE PULMONARY DISEASE, UNSPECIFIED Status: Chronic Current Visit: Yes Qualifiers: COPD type: emphysema Emphysema type: unspecified Qualified Code(s): J43.9 - Emphysema, unspecified (4) Tobacco dependence SNOMED Code(s): 06142149 ICD Code: F17.200 - NICOTINE DEPENDENCE, UNSPECIFIED, UNCOMPLICATED Status: Chronic Current Visit: Yes - Patient Summary/Data Hospital Course: Vernon presented to the emergency room after an episode of dizziness, shoulder pain, weakness and diaphoresis. He was noted to be hypotensive on the way to the hospital and was hypotensive in the emergency room. He had significant orthostatic changes. Initial work-up was fairly unremarkable. He had mild hypokalemia and only mild evidence for dehydration based on examination. There is no evidence for infection. He received 3 L of IV fluid in the emergency room but did remain orthostatic with symptoms and a very large drop in his blood pressure. He was admitted to the hospital overnight for observation. I suspected that the orthostasis was related to his chlorthalidone so this medication was discontinued. The morning after admission he continued to have orthostatic changes. We did give him 1 additional liter of fluid with normalization of his orthostatic vital signs. Symptomatically he is feeling well. He does not have any dizziness or weakness. His presenting symptoms have not returned. We discussed his use of chlorthalidone which has chronically been to help manage lower extremity edema. I suspect that he has no having an adverse event because of the chlorthalidone and it will be discontinued. I did give him a prescription for furosemide which she will use as needed if he develops lower extremity edema. The plan is for him to not take it each day but just as needed if his feet start to swell up. We will follow up if symptoms do not continue to get better or if they get worse. - Patient Instructions Diet: Regular Diet as Tolerated Activity: As Tolerated Showering/Bathing: May Shower Other/Special Instructions: 1. You were in the hospital for management of orthostatic hypotension (low blood pressure with standing). I suspect this was related to use of chlorthalidone with intravascular volume depletion/dehydration and too large of an effect on your blood pressure. Your condition has improved after we discontinued the medication. If you do develop swelling in your lower extremities I have placed a prescription for furosemide. You can take 1 tablet each morning as needed for swelling. If you do not have any edema I would not recommend that you take the medication. If swelling persists after several days of taking the furosemide or if the swelling increases you should follow-up with your primary care physician for reassessment. Please permanently stop taking the chlorthalidone. - Discharge Plan *PRESCRIPTION DRUG MONITORING PROGRAM REVIEWED*: Not Applicable *COPY OF PRESCRIPTION DRUG MONITORING REPORT IN PATIENT RAYMUNDO: Not Applicable Prescriptions/Med Rec: Furosemide 40 mg PO DAILY PRN #30 tablet PRN Reason: Edema Tobacco Cessation Medication: Prescription Refused Home Medications: Home Meds Aspirin [Halfprin] 81 mg PO DAILY 06/15/18 [History] Cholecalciferol (Vitamin D3) [Vitamin D3] 1,000 unit PO DAILY 06/15/18 [History] Cyanocobalamin (Vitamin B-12) [Vitamin B-12] 1,000 mcg SL DAILY 06/15/18 [History] Gabapentin [Neurontin] 300 mg PO DAILY 06/15/18 [History] traMADol HCl [Ultram] 50 mg PO QID 06/15/18 [History] Rivaroxaban [Xarelto] 20 mg PO DAILY 07/31/21 [History] Furosemide 40 mg PO DAILY PRN #30 tablet 08/01/21 [Rx] Oxygen Therapy Mode: Room Air Patient Handouts: Orthostatic Hypotension, Furosemide Oral Tablets Referrals: Preston Jacob MD [Primary Care Provider] - (f/u as needed if your swelling increases) - Discharge Summary/Plan Comment DC Time >30 min.: No Total # of Minutes for Discharge Time: 25 - Patient Data Vitals - Most Recent: Last Vital Signs Temp 36.2 C 08/01/21 13:00 Pulse 70 08/01/21 13:00 Resp 18 08/01/21 13:00 BP 116/82 08/01/21 13:00 Pulse Ox 93 L 08/01/21 13:00 Orthostatic Blood Pressure [ 102/63 Standing] Orthostatic Blood Pressure [ 109/68 Sitting] Orthostatic Blood Pressure [ 123/71 Supine] Weight - Most Recent: 84.822 kg I&O - Last 24 hours: Intake & Output 08/01/21 08/01/21 08/01/21 06:59 14:59 22:59 Intake Total 250 Output Total 275 500 Balance -275 -250 Lab Results - Last 24 hrs: Laboratory Results - last 24 hr 07/31/21 08/01/21 Range/Units 14:44 04:10 Sodium 140 (140-148) mmol/L Potassium 3.5 L (3.6-5.2) mmol/L Chloride 104 (100-108) mmol/L Carbon Dioxide 30 (21-32) mmol/L Anion Gap 9.5 (5.0-14.0) mmol/L BUN 18 (7-18) mg/dL Creatinine 0.7 L (0.8-1.3) mg/dL Est Cr Clr Drug Dosing 94.13 mL/min Estimated GFR (MDRD) > 60 (>60) Glucose 93 (74-106) mg/dL Calcium 8.3 L (8.5-10.1) mg/dL Urine Color Yellow (YELLOW) Urine Appearance Clear (CLEAR) Urine pH 7.0 (5.0-8.0) Ur Specific [place] 1.015 (1.008-1.030) Urine Protein Negative (NEGATIVE) mg/dL Urine Glucose (UA) Negative (NEGATIVE) mg/dL Urine Ketones Negative (NEGATIVE) mg/dL Urine Occult Blood Trace-intact H (NEGATIVE) Urine Nitrite Negative (NEGATIVE) Urine Bilirubin Negative (NEGATIVE) Urine Urobilinogen 0.2 (0.2-1.0) EU/dL Ur Leukocyte Esterase Negative (NEGATIVE) Urine RBC 0-5 (0-5) Urine WBC 0-5 (0-5) Ur Epithelial Cells Not seen Amorphous Sediment Rare Urine Bacteria Rare Urine Mucus Rare Med Orders - Current: Current Medications Acetaminophen (Acetaminophen 325 Mg Tab) 650 mg PO Q4H PRN PRN Reason: Pain (Mild 1-3)/fever Albuterol (Albuterol 0.083% 2.5 Mg/3 Ml Neb Soln) 2.5 mg NEB Q4H PRN PRN Reason: Shortness Of Breath/wheezing Lorazepam (Lorazepam 2 Mg/Ml Sdv) 0.5 mg IVPUSH Q4H PRN PRN Reason: Nausea/Vomiting Magnesium Hydroxide (Magnesium Hydroxide 400 Mg/5 Ml Susp 30 Ml Cup) 30 ml PO Q12H PRN PRN Reason: Constipation Melatonin (Melatonin 3 Mg Tab) 9 mg PO BEDTIME PRN PRN Reason: Sleep Last Admin: 07/31/21 21:08 Dose: 9 mg Documented by: Ondansetron HCl (Ondansetron 4 Mg/2 Ml Sdv) 4 mg IV Q6H PRN PRN Reason: Nausea/Vomiting Ondansetron HCl (Ondansetron 4 Mg Tab.Dis) 4 mg PO Q6H PRN PRN Reason: Nausea able to take PO Xarelto 20 Mg Tab * (Pt Own Med*) [facility] Last Admin: 08/01/21 08:34 Dose: 20 each Documented by: Gabapentin 600 Mg (Cap *Pt Own Med*) 0 each PO 1000,1530,2029,2330 [facility] Last Admin: 08/01/21 10:31 Dose: 1 each Documented by: Senna/Docusate Sodium (Docusate Sodium/Sennosides 50-8.6 Mg Tab) 1 tab PO BID PRN PRN Reason: Constipation Tramadol HCl (Tramadol 50 Mg Tab) 50 mg PO 1000,1530,2029,2330 [facility] Last Admin: 08/01/21 10:30 Dose: 50 mg Documented by: Discontinued Medications Gabapentin (Gabapentin 300 Mg Cap) 300 mg PO 1000,1530,2029,2330 [facility] Last Admin: 07/31/21 21:05 Dose: Not Given Documented by: Lactated Ringer's (Ringers, Lactated) 1,000 mls @ 1,000 mls/hr IV BOLUS [facility] Last Admin: 07/31/21 12:39 Dose: 1,000 mls/hr Documented by: Potassium Chloride/Sodium Chloride (Normal Saline With 20 Meq Kcl) 1,000 mls @ 1,000 mls/hr IV ASDIRECTED [facility] Last Admin: 07/31/21 14:09 Dose: 1,000 mls/hr Documented by: Lactated Ringer's (Ringers, Lactated) 1,000 mls @ 1,000 mls/hr IV BOLUS ONE Stop: 07/31/21 16:32 Last Admin: 07/31/21 16:36 Dose: 1,000 mls/hr Documented by: Sodium Chloride (Normal Saline) 1,000 mls @ 500 mls/hr IV ASDIRECTED ONE Stop: 08/01/21 13:29 Last Admin: 08/01/21 11:32 Dose: 500 mls/hr Documented by: Nicotine (Nicotine 21 Mg/24 Hr Patch) 21 mg TRDERM ONETIME ONE Stop: 07/31/21 17:25 Last Admin: 07/31/21 17:39 Dose: 21 mg Documented by: Potassium Chloride (Potassium Chloride 20 Meq Tab.Er) 40 meq PO ONETIME ONE Stop: 07/31/21 13:02 Last Admin: 07/31/21 13:12 Dose: 40 meq Documented by: Potassium Chloride (Potassium Chloride 20 Meq Tab.Er) 40 meq PO ONETIME ONE Stop: 08/01/21 08:46 Last Admin: 08/01/21 10:31 Dose: 40 meq Documented by: Tramadol HCl (Tramadol 50 Mg Tab *Pt Own Med*) 50 mg PO 1000,1530,2030,2330 [facility] Last Admin: 08/01/21 00:09 Dose: 50 mg Documented by:
== END 2021-08-01 16:00 | disposition home or self-care (01) ==
LOC: JP.ED 11:41 → JP.MS 17:53
PROVIDERS: ADMIT Internal Medicine; ATTEND Internal Medicine
DX: I95.1 Orthostatic hypotension (principal); M25.511 Pain in right shoulder; M25.512 Pain in left shoulder; I26.99 Other pulmonary embolism without acute cor pulmonale; D72.829 Elevated white blood cell count, unspecified; E87.6 Hypokalemia; I10 Essential (primary) hypertension; F17.210 Nicotine dependence, cigarettes, uncomplicated; J44.9 Chronic obstructive pulmonary disease, unspecified; Z88.8 Allergy status to other drugs, medicaments and biological substances; Z79.82 Long term (current) use of aspirin; Z79.899 Other long term (current) drug therapy; Z90.49 Acquired absence of other specified parts of digestive tract; Z98.890 Other specified postprocedural states
CPT/HCPCS: 36415; 70450; 71045; 80048; 81001; 83735; 84484; 85027; 99285; A9270; J3480; J7030; J7120

== ENCOUNTER 2022-06-25 14:12 | Emergency (ER) | payer MEDICARE | END 2022-06-25 16:45 | disposition home or self-care (01) | LOC: JP.ED 14:12 | DX: S82.61XA Displaced fracture of lateral malleolus of right fibula, initial encounter for closed fracture (principal); F17.210 Nicotine dependence, cigarettes, uncomplicated; Z88.6 Allergy status to analgesic agent; Z88.1 Allergy status to other antibiotic agents; Z79.899 Other long term (current) drug therapy; Z79.82 Long term (current) use of aspirin; Z90.49 Acquired absence of other specified parts of digestive tract; W19.XXXA Unspecified fall, initial encounter | CPT/HCPCS: 73590-RT; 73610-RT; 73630-RT; 99283 ==

== ENCOUNTER 2023-12-22 10:51 | Emergency (ER) | payer MEDICARE ==
[2023-12-22 11:30] LABS: BASE EXCESS VENOUS 4.7 mm/L; BICARBONATE,VENOUS 29.8 mmol/L; CARBOXYHEMOGLOBIN 6.7 % (0.0-1.6); METHEMOGLOBIN 1.3 %; O2 SATURATION VENOUS 59.9; OXYHEMOGLOBIN 55.1 %; PCO2 VENOUS 47.3 mm/Hg; PH,VENOUS 7.415 (7.350-7.450); TOTAL HEMOGLOBIN 15.9 g/dL (13.5-18.0)
[2023-12-22 11:31] LABS: BASOPHILS ABSOLUTE AUTO 0.03 K/uL (0.00-0.10); BASOPHILS PERCENT AUTO 0.4 % (0.1-1.3); HEMATOCRIT 45.8 % (38.4-49.7); HEMOGLOBIN 15.3 g/dL (12.9-16.9); IMMATURE GRAN PERCENT AUTO 1.3 % (0.0-0.7); LYMPHOCYTES ABSOLUTE AUTO 0.63 K/uL (0.8-3.3); LYMPHOCYTES PERCENT AUTO 8.2 % (11.4-47.7); MEAN CORPUSCULAR HEMOGLOBIN 29.9 pg (31.6-35.5); MEAN CORPUSCULAR HGB CONC 33.4 g/dL (31.6-35.5); MEAN CORPUSCULAR VOLUME 89.6 fL (81.4-99.0); MONOCYTES ABSOLUTE AUTO 0.93 K/uL (0.20-0.90); MONOCYTES PERCENT AUTO 12.1 % (3.3-12.6); NEUTROPHILS ABSOLUTE AUTO 6.02 K/uL (1.0-7.6); PLATELET COUNT,PLT 133 K/uL (130-375); RED BLOOD CELL COUNT 5.11 M/uL (4.14-5.76); WHITE BLOOD CELL COUNT,WBC 7.7 K/uL (3.2-11.0)
[2023-12-22] MEDS: Sodium Chloride 0.9% 1,000 ML IV ONE (11:32)
[2023-12-22 11:45] LABS: PO2 VENOUS 31.4 mm/Hg
[2023-12-22 11:51] LABS: INR 1.2; PROTHROMBIN TIME 11.9 sec (9.2-10.6)
[2023-12-22 12:06] LABS: A/G RATIO 0.8 (1.2-2.2); ALANINE AMINOTRANSFERASE,ALT 12 U/L (12-78); ALBUMIN 3.1 g/dL (3.4-5.0); ALKALINE PHOSPHATASE 56 U/L (46-116); ASPARTATE AMNIOTRANSFERASE,AST 12 U/L (15-37); BILIRUBIN TOTAL 0.5 mg/dL (0.2-1.0); BLOOD UREA NITROGEN,BUN 15 mg/dL (7-18); CALCIUM 7.9 mg/dL (8.5-10.1); CARBON DIOXIDE,CO2 31 mmol/L (21-32); CHLORIDE,CL 98 mmol/L (100-108); CREATININE 0.7 mg/dL (0.8-1.3); ESTIMATED GFR 93 mL/min (>60); GLUCOSE RANDOM 97 mg/dL (74-106); POTASSIUM,K 3.3 mmol/L (3.6-5.2); PRO B-TYPE NATRIUR PEPT,BNPPRO 1349 pg/mL (5-450); SODIUM,NA 134 mmol/L (140-148)
[2023-12-22 12:09] LABS: ANION GAP 8.3 mmol/L (5.0-14.0)
[2023-12-22] MEDS: traMADol 50 MG Tab PO ONE (12:16)
[2023-12-22] MEDS: Acetaminophen 500 MG Tab PO ONE (12:17)
[2023-12-22] MEDS: Gabapentin 300 MG Cap PO ONE (12:17)
[2023-12-22 12:20] LABS: CORONAVIRUS COVID-19 NAA NEGATIVE (NEGATIVE); INFLUENZA A NAA NEGATIVE (NEGATIVE); INFLUENZA B NAA NEGATIVE (NEGATIVE); RESPIRATORY SYNCYTIAL VIR NAA NEGATIVE (NEGATIVE)
[2023-12-22] MEDS: Iopamidol 612 MG/ML 100 ML Bottle IV PRN (13:02)
[2023-12-22] MEDS: Sodium Chloride 0.9% 10 ML Syringe FLUSH PRN (13:02)
[2023-12-22] MEDS: Sodium Chloride 0.9% 80 ML IV ONE (13:02)
== END 2023-12-22 15:00 | disposition critical access hospital (66) ==
LOC: JP.ED 10:51
DX: I71.22 Aneurysm of the aortic arch, without rupture (principal); Z79.82 Long term (current) use of aspirin; Z88.5 Allergy status to narcotic agent; Z88.6 Allergy status to analgesic agent; Z88.1 Allergy status to other antibiotic agents
CPT/HCPCS: 0241U; 36415; 71045; 71275; 80053; 80307; 82803; 83605; 83880; 84145; 84484; 85025; 85379; 85610; 93005; 96360; 96361; 99285; A9270; J3490; J7030; Q9967